=== PATIENT | female | born 1985 | race Caucasian/White ===

== ENCOUNTER 2017-07-23 17:58 | Emergency (ER) | payer MEDICAID, SELFPAY ==
[2017-07-23 17:59] VITALS: BP 135/87; PULSE 95; RESP 14; TEMP 36.9; O2SAT 99; BMI 24.4
--- NOTE | 2017-07-23 18:21 | ED.VISSUMM ---
- ER Visit Summary Date of Service: 07/23/17 Chief Complaint: Requesting detox from methamphetamine and opiates History of Present Illness: The patient is a 31 F has history of drug dependency. She states she uses periodically methamphetamine and opiates. She presently has no symptoms of withdrawal. She has gone through withdrawal in the past. She did do an outpatient assessment at 180. She denies fever, chills night sweats. Denies weight gain or weight loss. Eyes ocular, visual auditory symptoms denies chest pain or palpitations. Denies shortness of breath, cough or difficulty breathing. Denies dyspnea on exertion. She denies nausea, vomiting diarrhea. She denies myalgias arthralgias or back pain. She denies dysuria, frequency, urgency or hematuria. She denies bruising easily. She has no lesions on her extremities. Physical Examination: Blood pressure slightly elevated 135/84. She appears no distress. HEENT exam is unremarkable. Neck is supple. Heart is regular without murmur, gallop or rub. S1 and S2 are normal. Lungs are clear to auscultation with good movement of air bilaterally. Abdomen is soft nontender. Bowel sounds are present normal. There is no CVA tenderness noted. There is no track greco noted. There is no splinter hemorrhages, Osler nodes or Janeway lesions. Neuro exam is nonfocal. Test Results: None are indicated Emergency Department Course and Treatment: Contact [facility] in the morning and 180. Patient was informed since she is symptom-free she does not meet criteria for admission to the hospital Treatment Plan: Out patient follow-up and treatment Disposition: Discharged home in stable condition Impression: Drug dependency, methamphetamine and opiates This note was generated with [employer] dictation software. It may contain incorrect words, spelling, and punctuation that were not noted in review of the chart prior to signing ED Disposition - Plan for ED Patient: Disposition: Home or Assisted Living Chief Complaint: Subst Abuse Instructions: ED Drug Abuse General Referrals: Rashad Castrejon MD [Primary Care Provider] - As Needed EIGHTY,ONE [STAFF PHYSICIAN] - Additional Instructions: Contact [facility] tomorrow and 180 tomorrow. Presently you do not qualify for inpatient therapy.
--- NOTE | 2017-07-23 18:25 | ED.DCSUM_ITS ---
- ER Visit Summary Date of Service: 07/23/17 Chief Complaint: Requesting detox from methamphetamine and opiates History of Present Illness: The patient is a 31 F has history of drug dependency. She states she uses periodically methamphetamine and opiates. She presently has no symptoms of withdrawal. She has gone through withdrawal in the past. She did do an outpatient assessment at 180. She denies fever, chills night sweats. Denies weight gain or weight loss. Eyes ocular, visual auditory symptoms denies chest pain or palpitations. Denies shortness of breath , cough or difficulty breathing. Denies dyspnea on exertion. She denies nausea , vomiting diarrhea. She denies myalgias arthralgias or back pain. She denies dysuria, frequency, urgency or hematuria. She denies bruising easily. She has no lesions on her extremities. Physical Examination: Blood pressure slightly elevated 135/84. She appears no distress. HEENT exam is unremarkable. Neck is supple. Heart is regular without murmur, gallop or rub. S1 and S2 are normal. Lungs are clear to auscultation with good movement of air bilaterally. Abdomen is soft nontender. Bowel sounds are present normal. There is no CVA tenderness noted. There is no track greco noted. There is no splinter hemorrhages, Osler nodes or Janeway lesions. Neuro exam is nonfocal. Test Results: None are indicated Emergency Department Course and Treatment: Contact [facility] in the morning and 180. Patient was informed since she is symptom-free she does not meet criteria for admission to the hospital Treatment Plan: Out patient follow-up and treatment Disposition: Discharged home in stable condition Impression: Drug dependency, methamphetamine and opiates This note was generated with [employer] dictation software. It may contain incorrect words, spelling, and punctuation that were not noted in review of the chart prior to signing ED Disposition - Plan for ED Patient: Disposition: Home or Assisted Living Chief Complaint: Subst Abuse Instructions: ED Drug Abuse General Referrals: Rashad Castrejon MD [Primary Care Provider] - As Needed EIGHTY,ONE [STAFF PHYSICIAN] - Additional Instructions: Contact [facility] tomorrow and 180 tomorrow. Presently you do not qualify for inpatient therapy.
== END 2017-07-23 18:36 | disposition home or self-care (01) ==
PROVIDERS: Emergency Provider Emergency Medicine; Family Provider Family Medicine; PCP Family Medicine
DX: F15.20 Other stimulant dependence, uncomplicated (principal); F11.20 Opioid dependence, uncomplicated; Z72.0 Tobacco use
CPT/HCPCS: 99282

== ENCOUNTER 2018-08-20 22:31 | Emergency (ER) | payer SELFPAY ==
[2018-08-20 22:32] VITALS: BP 148/92; PULSE 104; RESP 15; TEMP 36.9; O2SAT 97; BMI 26.4
--- NOTE | 2018-08-20 23:17 | ED.VISSUMM ---
- ER Visit Summary Date of Service: 08/20/18 Chief Complaint: Heroin detox History of Present Illness: The patient is a 32 F who presents requesting detox from heroin. Patient currently uses opiates, mainly heroin but sometimes fentanyl, as well as methamphetamine. She last used heroin last night. She has been using meth today. She has been in detox before. She is hoping to be treated by [facility]. Patient currently complains of diarrhea with associated crampiness, chills, nausea and crampiness as well as tremulousness and nasal congestion. Physical Examination: Vital signs: afebrile, hemodynamically stable, no hypoxia on room air General: well nourished, well developed, in no distress Skin: warm, dry, no rash, no pallor, no diaphoresis, no piloerection HEENT: normocephalic and atraumatic; PERRL, EOMI, moist mucous membranes, multiple skin picking greco on the face Cardiovascular: Mildly tachycardic rate and rhythm, no peripheral edema Respiratory: No increased work of breathing MSK: Moves all extremities, no deformities, normal strength, tremulousness with hand extended Neuro: Awake and alert, oriented ?4. No facial droop, sensation and motor function intact and symmetric Test Results: [] Emergency Department Course and Treatment: Patient currently has a CINA score of 9. Patient's insurance did not qualify and that she would be self-pay. Patient plans to visit the insurance office tomorrow, as her insurance should have come through and covered her. She is also going to return tomorrow during hours that [facility] is in-house and try to get back in at that time. Patient was given Zofran for nausea in the emergency department. She was given a prescription for the same. She states she will not use when she leaves. She was also given some resources for other treatment programs in case she is unable to successfully get into [facility]. Patient was discharged home with her mother. Treatment Plan: [] Disposition: [] Impression: Opiate withdrawal, polysubstance abuse This note was generated with [employer] software. It may contain incorrect words, spelling, and punctuation that were not noted in review of the chart prior to signing ED Disposition - Plan for ED Patient: Disposition: Home or Assisted Living Instructions: Opiate Abuse, Narcotic Withdrawal Prescriptions: Ondansetron [Ondansetron Odt] 4 mg PO TID PRN PRN #10 tab.rapdis PRN Reason: Nausea Prescription Printed Referrals: Rashad Castrejon MD [Primary Care Provider] - As Needed [employer] [STAFF PHYSICIAN] - Additional Instructions: If you have any worsening of your condition or any new concerning symptoms, please return immediately to the emergency department for another evaluation.
[2018-08-21 00:20] VITALS: PULSE 97; RESP 20; O2SAT 98
--- NOTE | 2018-08-21 00:21 | ED.RN ---
THIS NURSE REVIEWED D/C INSTRUCTIONS WITH PT. PT VERBALIZED UNDERSTANDING OF INSTRUCTIONS. PT DENIES FURTHER NEEDS OR QUESTIONS AT THIS TIME. PT AMBULATES FROM ROOM ON OWN WITHOUT ASSISTANCE FROM STAFF
== END 2018-08-21 00:22 | disposition home or self-care (01) ==
PROVIDERS: Emergency Provider Emergency Medicine; Family Provider Family Medicine; PCP Family Medicine
DX: F11.23 Opioid dependence with withdrawal (principal); F19.10 Other psychoactive substance abuse, uncomplicated
CPT/HCPCS: 99282

== ENCOUNTER 2019-01-15 16:29 | Inpatient (IN) | payer MEDICAID, SELFPAY ==
[2019-01-15 16:31] VITALS: BP 147/93; PULSE 97; RESP 17; TEMP 37.1; O2SAT 100; BMI 26.6
--- NOTE | 2019-01-15 16:47 | CT_ITS ---
STUDY: CT ABDOMEN AND PELVIS WITHOUT CONTRAST REASON FOR EXAM: Female, 33 years old. RT FLANK PAIN X 4 DAYS,HEROIN USE TODAY,PREG TEST WAS NEGATIVE HX:KIDNEY STONES,APPENDECTOMY RADIATION DOSAGE (If Supplied By Facility): CTDIvol = ( 7.13 ) mGy, DLP = ( 352.62 ) mGycm TECHNIQUE: Transaxial images were obtained from the dome of the diaphragm to the symphysis pubis without oral contrast, and without intravenous contrast. Sagittal and coronal images were reconstructed. Individualized dose optimization techniques were used for this CT. COMPARISON: None. FINDINGS: The visualized lung bases are unremarkable. A tiny calcified nodule is present in the posterior capsule of the left lobe of the liver. The liver is otherwise grossly unremarkable. No intrahepatic biliary duct dilatation or liver mass. Normal gallbladder and extrahepatic biliary system. Normal spleen. Normal pancreas. Normal bilateral adrenal glands. Normal right kidney. Normal left kidney. No hydronephrosis or renal masses. No large stones. Normal visualized stomach. Normal small intestine. Normal colon. No bowel dilatation or obstruction. No free air or free fluid. There is non-visualization of the appendix. Normal abdominal aorta. Normal inferior vena cava. Normal retroperitoneum. Normal urinary bladder. Grossly unremarkable uterus and adnexal regions. Normal abdominal wall. Normal osseous structures. CT/Abdomen/Pelvis without Cont IMPRESSION: No demonstrated acute or significant process of the abdomen and pelvis. Electronically Signed: Salvador Darnell MD at 18:48 EST , Service support ,
[2019-01-15 17:19] LABS: Bacteria 0 SEEN /hpf (None Seen); Mucous, Urine 0 SEEN /hpf (<or=2+)
[2019-01-15 17:28] LABS: Absolute Lymphocyte Count 1.84 X10^3/uL (0.83-4.51); Absolute Neutrophil Count 2.8 X10^3/uL (2.0-7.7); Basophil# 0.03 X10^3/uL; Basophil% 0.6 % (0-1); Eosinophil# 0.14 X10^3/uL; Eosinophils% 2.6 % (0-5); Hematocrit 40.1 % (37-47); Lymphocyte # 1.84 X10^3/ul (4.0); Lymphocyte % 33.9 % (19-41); Mean Corp Hgb Conc 32.4 g/dL (32-36); Mean Corpuscular Hgb 28.8 pg (27.0-32.0); Mean Corpuscular Volume 88.7 fL (81-99); Mean Platelet Vol. 8.8 fl (6.2-12.0); Monocyte# 0.58 X10^3/uL; Monocyte% 10.7 % (0-10); NRBC Flagged by Analyzer 0 % (0-5); Neutrophil # 2.82 X10^3/uL (2.7-7.7); Neutrophil % 51.8 % (47-70); POSITIVE MORPHOLOGY YES; Platelet Count 289 K/mm3 (150-450); RBC Distribution Width CV 14.1 % (11.6-14.6); RBC Distribution Width SD 45.6 fl (35.1-43.9); Red Blood Count 4.52 M/mm3 (4.2-5.4); White Blood Count 5.4 K/mm3 (4.4-11.0)
[2019-01-15 17:31] LABS: Color, Urine Yellow (Yellow); Glucose, Dipstick Normal (Normal); Ketone-Dipstick Negative (Negative); Leukocyte Esterase-Dipstick Negative /ul (Negative); Nitrite-Dipstick Negative (Negative); Occult Blood-Urine Negative /ul (Negative); Protein-Dipstick Negative (Negative); Urine Bilirubin Dipstick Negative (Negative); Urine Clarity Clear (Clear); Urine Urobilinogen Normal (Normal)
[2019-01-15] MEDS: Ketorolac 30 MG/ML Syringe IV (17:32)
[2019-01-15 17:36] LABS: Differential Indicated SCAN CRITERIA MET
[2019-01-15 17:37] LABS: Anion Gap 5 (5-15); BUN 7 mg/dL (7-18); BUN/Creat Ratio 10.6 RATIO (10-20); Calcium,Total 9.2 mg/dL (8.5-10.1); Chloride 107 mmol/L (98-107); Creatinine, Serum 0.66 mg/dL (0.55-1.02); EST Glomerular Filtration Rate 108 mL/min (>60); Est Glom Filt Rate - Afr Amer 131 mL/min (>60); Estimated Creatinine Clearance 99.35 ml/min; Glucose 89 mg/dL (74-106); Sodium Level 139 mmol/L (136-145)
[2019-01-15 17:38] LABS: Amphetamine Urine VISTA POSITIVE (<1000 ng/mL); Barbiturate Urine VISTA NEGATIVE (< 200 ng/mL); Benzodiazepine Urine VISTA NEGATIVE (< 200 ng/mL); Cocaine Urine VISTA NEGATIVE (< 300 ng/mL); Ecstacy Urine VISTA NEGATIVE (< 500 ng/mL); Methadone Urine VISTA NEGATIVE (< 300 ng/mL); PCP Urine VISTA NEGATIVE (< 25 ng/mL); THC Urine VISTA NEGATIVE (< 50 ng/mL); Vista UDS pH Range 7
[2019-01-15 17:53] LABS: Internal QC Validated? YES +Cl - CLEAR BKGD; Pregnancy, Serum, hCG Quali. NEGATIVE Negative
[2019-01-15 17:54] LABS: Differential Comment SCANNED; Red Blood Cells-Urine 0-5 SEEN /hpf (0-5); Squamous Epithelial Cells - UA 0-5 SEEN /hpf (5-10); White Blood Cells 0-5 SEEN /hpf (0-5)
[2019-01-15 18:13] LABS: Alcohol, Blood (Medical)-Serum < 3.0 mg/dL
--- NOTE | 2019-01-15 19:07 | ED.DCSUM_ITS ---
- ER Visit Summary Date of Service: 01/15/19 Chief Complaint: [Request for detox from heroin and fentanyl as well as right flank pain] History of Present Illness: The patient is a 33 F [the emergency department with request to go through detox for opiates. Patient states that she last used fentanyl about 2 AM. Patient also has been having right flank pain for the last 3 or 4 days. She denies any dysuria. She denies frequency or urgency. Patient denies hematuria. Denies any fevers. She has history of peptic ulcer disease. Patient had prior appendectomy and C-sections x3.] Physical Examination: [HEENT-PERRLA, EOMI. Cranial nerves II through XII grossly intact. TMs clear. Mucous membranes moist. No adenopathy. Cardiovascular-regular rate and rhythm without murmur or ectopy Lungs-clear to auscultation, chest wall stable without crepitus or subcu emphysema Abdomen-normoactive bowel sounds, soft. Patient has some tenderness over the right lower quadrant with some guarding. Patient has CVA tenderness on the right. There is no rebound, rigidity, or perineal signs. Extremities-intact ?4, normal range of motion, normal pulses, atraumatic] Test Results: [CBC with differential obtained showed a white count of 5.4, hemoglobin 13, hematocrit 40, placed 289. Chemistries were normal. Urinalysis normal. hCG was negative. Toxicology screen was positive for amphetamines and alcohol was negative. CT scan of the abdomen pelvis showed nothing acute.] Emergency Department Course and Treatment: [Had an IV line established and she was ordered Toradol 30 mg IV.] Treatment Plan: [Admit for detox from heroin and fentanyl.] Disposition: [Admit] Impression: [Detox from heroin and fentanyl Right flank pain-etiology uncertain] This note was generated with [employer] software. It may contain incorrect words, spelling, and punctuation that were not noted in review of the chart prior to signing ED Disposition - Plan for ED Patient: Referrals: Rashad Castrejon MD [Primary Care Provider] -
--- NOTE | 2019-01-15 19:19 | PCM.HP.STD ---
Problem List (1) Opiate withdrawal Status: Acute (2) IVDA (intravenous drug abuse) complicating Status: Chronic (3) Anxiety and depression Status: Chronic (4) Tobacco use Status: Chronic History of Present Illness Date of Admission: 01/15/19 Chief Complaint: Acute opiate withdrawal The patient is a 33 y/o F w/ PMHx: Tobacco use, Anxiety and Depression, Polysubstance Abuse, IVDA, currently using IV heroin and fentanyl (rotates, $60 per day usage) as well as occasional methamphetamines who presents to the [facility] ED on 01/15/19 w/ noted opiate withdrawal onset starting 01/15/19 evening following last dose of IV fentanyl at ~ 2 am on day of presentation with abdominal pain/cramping, generalized body aches and pains, rhinorrhea, piloerection, fatigue, restless leg, sweating, yawning. Patient interested in attaining clean status. She notes having been previously treated in the acute rehab setting x 2. She notes she had previously been clean x 2 years. Work-up in the ED included T 98.8, heart rate 97, BP 147/93, respiratory rate 17, 100% room air, CBC unremarkable, BMP unremarkable, negative testing, urinalysis unremarkable, urine drug screen with positive amphetamines, negative alcohol, CT abdomen and pelvis with no acute intra-abdominal process. In the ED patient was administered normal saline and Toradol. Past Medical History Past Medical History (Chronic Problems): Chronic Problems IVDA (intravenous drug abuse) complicating (Chronic) Anxiety and depression (Chronic) Tobacco use (Chronic) Allergies latex Allergy (Verified 01/15/19 16:30) Rash Home Medications: Ambulatory Orders Medication Instructions Recorded NK 01/15/19 Surgical History: - - Tonsillectomy, appendectomy, x3, history of gastric and duodenal perforation, bowel obstruction with required resection. Psychiatric History: Anxiety, Depression MANAGER METAL History: No pertinent MANAGER METAL history Lives: With Family - Patient lives with her mother and her children. Smoking Status: Current every day smoker - Patient smokes approximately 1/2 pack/day cigarette tobacco usage. Tobacco Use: Cigarettes Alcohol: None Drugs: - - Patient mitts to heroin, fentanyl and methamphetamine usage, IV. - *Family History Maternal History Items: Diabetes Paternal History Items: Diabetes Review of Systems Constitutional: Reports: Anorexia, Malaise, Weakness, Fatigue. Denies: Chills, Fever, Weight Change HEENT: Reports: Nasal Congestion, Post Nasal Drip, Sinus Congestion. Denies: Head Aches, Sinus Drainage Cardiovascular: Denies: Chest Pain, Palpitations Respiratory: Denies: Cough, Shortness of Breath, Shortness of breath at rest, Shortness of breath upon exertion, Sputum production Gastrointestinal: Reports: Abdominal Pain, Diarrhea, Nausea, Vomiting Genitourinary: Denies: Dysuria Musculoskeletal: Reports: Joint Pain, Muscle pain. Denies: Joint Tenderness Skin: Reports: Skin Changes. Denies: Rash, Wounds Neurological: Denies: Numbness, Tingling, Focal weakness Psychiatric: Reports: Anxiety, Depression. Denies: Homicidal Ideations, Suicidal Ideations Hematologic/ Lymphatic: Denies: Easy Bruising, Easy Bleeding VTE Information - Inpt Only VTE Present on Admission: No VTE Mechan Device Prophylaxis: None VTE Pharm Prophylaxis ordered?: No Reason prophylaxis not ordered:: Treatment Not Indicated Patient Problems: Active and Suspected Problems Opiate withdrawal (Acute) Subjective: Seated upright in the ED bed, fatigued appearance, mildly anxious, moving frequently. Objective: Physical Examination: General: awake, alert, oriented x 3 and cooperative, seated upright in the ED bed, mildly uncomfortable appearing. Skin: normal color, turgor, no icterus, cyanosis except notable pink regions to face. HEENT: AT/NC, EOMI, PERRLA, dry MM, rhinorrhea present, no carotid bruits or JVD noted. Lungs: CTA bilaterally, moderate effort, moderate decrease BL bases, no rales, ronchi or wheezing. Heart: Mildly tachycardic with regular rhythm; no gallop, rub audible. Abdomen: soft, mild generalized discomfort with palpation, ND, normal BS, no HSM. Extremities: no cyanosis, clubbing, or edema. Neurological: patient awake, alert, oriented x 3; cognitive function intact; pupils equally reactive to light and accomodation; cranial nerves II-XII grossly normal, moving all 4 extremities, no focal deficits, strength moderately global decrease secondary to acute presentation as noted. Psychiatric: affect appears mildly anxious, mildly agitated, no acute evidence of depressive feelings. - Physical Exam Vitals/I&O's: Vital Signs Temp Pulse Resp BP Pulse Ox 98.8 F 97 17 147/93 H 100 11/20/19 16:31 01/15/19 16:31 01/15/19 16:31 01/15/19 16:31 01/15/19 16:31 Oxygen Delivery Method Room Air Weight: 150 lb 12.739 oz Body Mass Index (BMI) 26.6 Laboratory Results 01/15/19 17:05: WBC 5.4, RBC 4.52, Hgb 13.0, Hct 40.1, MCV 88.7, MCH 28.8, MCHC 32.4, RDW Std Deviation 45.6 H, RDW Coeff of Mikki 14.1, Plt Count 289, MPV 8.8, Immature Gran % (Auto) 0.400, Neut % (Auto) 51.8, Lymph % (Auto) 33.9, [place] % (Auto) 10.7 H, Eos % (Auto) 2.6, Baso % (Auto) 0.6, Absolute Neuts (auto) 2.8, Absolute Lymphs (auto) 1.84, Nucleated RBC % 0, Differential Comment SCANNED 01/15/19 17:05: Sodium 139, Potassium 4.0, Chloride 107, Carbon Dioxide 27.0, Anion Gap 5, BUN 7, Creatinine 0.66, Estim Creat Clear Calc 99.35, Est GFR (MDRD) Af Amer 131, Est GFR (MDRD) Non-Af 108, BUN/Creatinine Ratio 10.6, Glucose 89, Calcium 9.2 01/15/19 17:05: Ethyl Alcohol < 3.0 01/15/19 17:05: Serum , Qual NEGATIVE 01/15/19 17:05: Urine Color Yellow, Urine Clarity Clear, Urine pH 7.0, Ur Specific [place] 1.010, Urine Protein Negative, Urine Glucose (UA) Normal, Urine Ketones Negative, Urine Occult Blood Negative, Urine Nitrite Negative, Urine Bilirubin Negative, Urine Urobilinogen Normal, Ur Leukocyte Esterase Negative, Urine RBC 0-5 SEEN, Urine WBC 0-5 SEEN, Ur Squamous Epith Cells 0-5 SEEN, Urine Bacteria 0 SEEN, Urine Mucus 0 SEEN 01/15/19 17:05: Urine Opiates Screen NEGATIVE, Urine Methadone Screen NEGATIVE, Ur Barbiturates Screen NEGATIVE, Ur Phencyclidine Scrn NEGATIVE, Ur Amphetamines Screen POSITIVE H, U Methamphetamin-MDMA NEGATIVE, U Benzodiazepines Scrn NEGATIVE, Urine Cocaine Screen NEGATIVE, U Cannabinoids Screen NEGATIVE, Ur Drug Screen Comment Current Medications Sodium Chloride () 1,000 mls @ 150 mls/hr IV .[id number] [facility] Assessment/Plan All Active Problems Opiate withdrawal (Acute) The patient is a 33 y/o F w/ PMHx: Tobacco use, Anxiety and Depression, Polysubstance Abuse, IVDA, currently using IV heroin and fentanyl (rotates, $60 per day usage) as well as occasional methamphetamines who presents to the [facility] ED on 01/15/19 w/ noted opiate withdrawal onset starting 01/15/19 evening following last dose of IV fentanyl at ~ 2 am on day of presentation. (1) Acute Opiate Withdrawal: Will admit to [facility], will initiate and continue on tapering course of Subutex, as needed Seroquel, Librium, Sinemet, Catapres, Bentyl, Vistaril, IV fluids, IV antiemetics, Tylenol as needed for pain. Will consult case management to assist with transition of care following completion of taper for transition to next level of rehabilitation care. (2) Polysubstance Abuse, IVDA: We will obtain hepatitis and HIV panel. Discussed that given patient status currently if hepatitis C positive would need to be clean and sober x6 months with documented attendance of NA or AA meetings but then would be an appropriate candidate for treatment if applicable. Encouraged PCP establishment and follow-up. (3) Tobacco Abuse: Encouraged cessation, inpatient consultation per RT, NR if desired. (4) Anxiety and depression: Encourage outpatient follow-up, consideration of SNRI versus SSRI initiation to assist with avoidance of #1. (5) DVT prophylaxis: Low risk. Code Visit Inpatient E&M: 57061 Init Hosp L3
[2019-01-15] MEDS: 0.9% Normal Saline 1,000 ML 150 ML IV (19:27)
[2019-01-15 20:13] VITALS: BMI 27.5
[2019-01-15 20:14] VITALS: BP 132/87; PULSE 69; RESP 16; TEMP 36.7; O2SAT 97
[2019-01-15 20:17] VITALS: BMI 27.5
[2019-01-15] MEDS: Buprenorphine HCl 2 MG TAB.SUBL SL (20:47)
[2019-01-15] MEDS: Pramipexole Di-HCl 0.25 MG Tablet PO (20:48)
[2019-01-15] MEDS: traZODone 50 MG Tablet PO (20:48)
[2019-01-15] MEDS: Lactated Ringers 1,000 ML 125 ML IV (20:52)
[2019-01-15 21:21] LABS: HIV - WCH Non-Reactive (Nonreactive)
[2019-01-15] MEDS: hydrOXYzine PAM 25 MG Capsule 50 MG PO (22:44)
[2019-01-15] MEDS: cloNIDine HCl 0.1 MG Tablet PO (22:44)
[2019-01-15] MEDS: Methocarbamol 750 MG Tablet PO (23:46)
[2019-01-15] MEDS: Ibuprofen 600 MG Tablet PO (23:46)
[2019-01-15] MEDS: QUEtiapine 25 MG Tablet PO (23:46)
[2019-01-16 02:00] VITALS: BP 138/100; PULSE 86; RESP 20; TEMP 36.8; O2SAT 96
[2019-01-16] MEDS: Buprenorphine HCl 2 MG TAB.SUBL SL ×3 (04:09→20:32)
[2019-01-16 08:35] VITALS: BP 117/68; PULSE 68; RESP 18; TEMP 36.3; O2SAT 97
--- NOTE | 2019-01-16 08:47 | PCM.PN.HOSP ---
Patient Problems: Active and Suspected Problems Opiate withdrawal (Acute) Subjective: Follow-up on acute opiate withdrawal: Patient was seen and examined. No acute events overnight. Complains of hot flashes, restlessness and inability to sleep. Vitals/I&O's: Vital Signs Temp Pulse Resp BP Pulse Ox 97.3 F L 68 18 117/68 97 01/16/19 08:35 01/16/19 08:35 01/16/19 08:35 01/16/19 08:35 01/16/19 08:35 Oxygen Delivery Method Room Air Weight: 70.398 kg Body Mass Index (BMI) 27.5 Intake and Output for Last 24 Hours 01/14/19 01/15/19 01/16/19 23:59 23:59 23:59 Intake Total 242.5 / 842.5 1556.25 / 1556.25 Balance 242.5 / 842.5 1556.25 / 1556.25 General: Alert, Oriented x3, Cooperative, No apparent distress HEENT: Atraumatic, PERRLA, EOMI, Normocephalic Oral: Moist Mucosa Neck: Supple Lungs: Clear to auscultation, Normal air movement Cardiovascular: Regular rate, Regular Rhythm, Normal S1, Normal S2, No murmurs Abdomen: Bowel Sounds Present, Soft, Non Tender, Non-Distended, No Hepato-splenomegaly Extremities: No edema Skin: - - multiple pimples on face Musculoskeletal: No Tenderness to Palpation of Joints or Extremities Lymphatic: No Cervical, Supraclavicular, or Inguinal Adenopathy Neurological: Cranial nerves II-XII grossly intact, Neuro grossly intact Psych/Mental Status: Normal Affect, Appropriate Laboratory Results 01/15/19 17:05: WBC 5.4, RBC 4.52, Hgb 13.0, Hct 40.1, MCV 88.7, MCH 28.8, MCHC 32.4, RDW Std Deviation 45.6 H, RDW Coeff of Mikki 14.1, Plt Count 289, MPV 8.8, Immature Gran % (Auto) 0.400, Neut % (Auto) 51.8, Lymph % (Auto) 33.9, [place] % (Auto) 10.7 H, Eos % (Auto) 2.6, Baso % (Auto) 0.6, Absolute Neuts (auto) 2.8, Absolute Lymphs (auto) 1.84, Nucleated RBC % 0, Differential Comment SCANNED 01/15/19 17:05: Sodium 139, Potassium 4.0, Chloride 107, Carbon Dioxide 27.0, Anion Gap 5, BUN 7, Creatinine 0.66, Estim Creat Clear Calc 99.35, Est GFR (MDRD) Af Amer 131, Est GFR (MDRD) Non-Af 108, BUN/Creatinine Ratio 10.6, Glucose 89, Calcium 9.2 01/15/19 17:05: Ethyl Alcohol < 3.0 01/15/19 17:05: Serum , Qual NEGATIVE 01/15/19 17:05: Urine Color Yellow, Urine Clarity Clear, Urine pH 7.0, Ur Specific Vaughn 1.010, Urine Protein Negative, Urine Glucose (UA) Normal, Urine Ketones Negative, Urine Occult Blood Negative, Urine Nitrite Negative, Urine Bilirubin Negative, Urine Urobilinogen Normal, Ur Leukocyte Esterase Negative, Urine RBC 0-5 SEEN, Urine WBC 0-5 SEEN, Ur Squamous Epith Cells 0-5 SEEN, Urine Bacteria 0 SEEN, Urine Mucus 0 SEEN 01/15/19 17:05: Urine Opiates Screen NEGATIVE, Urine Methadone Screen NEGATIVE, Ur Barbiturates Screen NEGATIVE, Ur Phencyclidine Scrn NEGATIVE, Ur Amphetamines Screen POSITIVE H, U Methamphetamin-MDMA NEGATIVE, U Benzodiazepines Scrn NEGATIVE, Urine Cocaine Screen NEGATIVE, U Cannabinoids Screen NEGATIVE, Ur Drug Screen Comment 01/15/19 17:05: Hepatitis A IgM Ab Pending, Hepatitis A Ab Total Pending, Hep Bs Antigen Pending, Hep B Core Total Ab Pending, Hep B Core IgM Ab Pending 01/15/19 17:05: HIV 1&2 Antibody Non-Reactive Current Medications Acetaminophen (Tylenol) 500 mg PO Q4H PRN PRN PRN Reason: Temp > 100.4 F Al Hydroxide/Mg Hydroxide (Mylanta Ii) 30 ml PO Q6H PRN PRN PRN Reason: dyspesia Albuterol Sulfate (Ventolin Aerosols) 2.5 mg INHALATION Q2H PRN PRN PRN Reason: dyspnea, wheezing Bisacodyl (Dulcolax) 10 mg RECTAL DAILY PRN PRN Reason: Constipation Buprenorphine HCl (Buprenorphine Hcl) 4 mg SL Q8H JESSICA; Taper Stop: 01/19/19 00:29 Last Admin: 01/16/19 04:09 Dose: 4 mg Documented by: Chlordiazepoxide (Librium) 25 mg PO Q6H PRN PRN PRN Reason: Moderate-Severe Anxiety Clonidine (Catapres) 0.1 mg PO Q2H PRN PRN PRN Reason: Hot/Cold Sweats or Anxiety Last Admin: 01/15/19 22:44 Dose: 0.1 mg Documented by: Dextrose (D50w Syringe) 0 gm IV X1 PRN; Protocol PRN Reason: Hypoglycemia Dicyclomine HCl (Bentyl) 20 mg PO Q6H PRN PRN PRN Reason: Abdomnial Discomfort Glucagon () 1 mg IM .X1 PRN PRN Reason: Hypoglycemia Hydralazine HCl (Apresoline Iv) 10 mg IV Q4H PRN PRN PRN Reason: SBP > 160 Hydroxyzine HCl (Vistaril Vial) 50 mg IM Q6H PRN PRN PRN Reason: Breakthrough Anxiety Hydroxyzine Pamoate (Vistaril Pamoate Capsule) 50 mg PO Q6H PRN PRN PRN Reason: Mild Anxiety Last Admin: 01/15/19 22:44 Dose: 50 mg Documented by: Ibuprofen (Motrin) 600 mg PO Q8H PRN PRN PRN Reason: Pain Score 1-5/10 Last Admin: 01/15/19 23:46 Dose: 600 mg Documented by: Loperamide HCl (Imodium) 2 - 4 mg PO UD PRN PRN Reason: LOOSE STOOLS Methocarbamol (Methocarbamol) 750 mg PO Q6H PRN PRN PRN Reason: Muscle Aches Last Admin: 01/15/19 23:46 Dose: 750 mg Documented by: Nicotine (Nicoderm Cq (Pbkc)) 14 mg TRANSDERM. DAILY JESSICA Last Admin: 01/16/19 08:43 Dose: Not Given Documented by: Ondansetron HCl (Zofran) 4 mg IV Q8H PRN PRN PRN Reason: NAUSEA/VOMITING Ondansetron HCl (Zofran Odt) 4 mg PO Q6H PRN PRN PRN Reason: NAUSEA Pramipexole Dihydrochloride (Mirapex) 0.25 mg PO Q12H PRN PRN PRN Reason: Restless Legs Last Admin: 01/15/19 20:48 Dose: 0.25 mg Documented by: Quetiapine Fumarate (Seroquel) 25 mg PO Q6H PRN PRN PRN Reason: severe agitation, anxiety Last Admin: 01/15/19 23:46 Dose: 25 mg Documented by: Senna (Senokot) 1 tablet PO QHS PRN PRN Reason: Constipation Sodium Chloride () 10 - 40 ml IV UD PRN PRN Reason: SALINE FLUSH Trazodone HCl (Desyrel) 50 mg PO QHS JESSICA Last Admin: 01/15/19 20:48 Dose: 50 mg Documented by: STROKE Vital Signs/Narrative: Vital Signs Temp Pulse Resp BP Pulse Ox 01/16/19 08:35 97.3 F L 68 18 117/68 97 Medical Necessity - Tobacco Use Smoking Status: Current every day smoker Tobacco Use: Cigarettes Assessment/Plan All Active Problems Opiate withdrawal (Acute) 1. Acute opiate withdrawal, improving, last CINA score is 4 Continue on the buprenorphine withdrawal protocol 2. Polysubstance use disorder, advised to quit 3. Anxiety/depression, not on home medications 4. Nicotine dependence, on nicotine replacement 5. DVT PPx- early ambulation Code Visit Inpatient E&M: 47863 Subs Hosp L2
[2019-01-16] MEDS: cloNIDine HCl 0.1 MG Tablet PO ×2 (12:35→14:54)
--- NOTE | 2019-01-16 12:36 | CASEMGMT ---
SW attempted to meet w/pt, pt states is not feeling well and does not want to meet now. SW explained can return tomorrow, pt agreeable to this. SW gave pt a brochure for [facility] with the 24 hour navigator number, SW encouraged pt to call the number to explore discharge options. Pt states understanding. SW will follow up w/pt tomorrow. PARK Ledbetter
[2019-01-16 14:45] VITALS: BP 115/74; PULSE 79; RESP 18; TEMP 36.9; O2SAT 98
[2019-01-16] MEDS: Dicyclomine 10 MG Capsule 20 MG PO (14:53)
[2019-01-16] MEDS: Pramipexole Di-HCl 0.25 MG Tablet PO (14:54)
[2019-01-16] MEDS: chlordiazePOXIDE 25 MG Capsule PO (14:54)
[2019-01-16] MEDS: Methocarbamol 750 MG Tablet PO (14:54)
[2019-01-16 20:28] VITALS: BP 95/59; PULSE 66; RESP 18; TEMP 37.1; O2SAT 99
[2019-01-16] MEDS: traZODone 50 MG Tablet PO (20:32)
[2019-01-17] MEDS: Buprenorphine HCl 2 MG TAB.SUBL SL ×2 (03:37→11:33)
[2019-01-17 03:40] VITALS: BP 105/64; PULSE 58; RESP 14; TEMP 36.8; O2SAT 97
[2019-01-17] MEDS: Methocarbamol 750 MG Tablet PO ×3 (03:47→17:51)
[2019-01-17] MEDS: Dicyclomine 10 MG Capsule 20 MG PO ×3 (03:47→17:51)
[2019-01-17] MEDS: Pramipexole Di-HCl 0.25 MG Tablet PO (03:47)
[2019-01-17 08:11] LABS: HEPATITIS B SURFACE AG Negative (Negative); Hepatitis A AB, Total Positive (Negative); Hepatitis A IgM Antibody Positive (Negative); Hepatitis B Core AB IgM Negative (Negative); Hepatitis B Core Ab Total Negative (Negative)
--- NOTE | 2019-01-17 09:29 | CASEMGMT ---
SW met w/pt in room briefly. Pt is still not feeling well today, and is not up for a long conversation. She has been working with [facility] and is planning to call them herself at discharge, plans to go through their 30 day program at [facility]. She states she will call when discharged from here. If that does not work out, she plans to follow up with [facility]. SW inquired w/pt if she needs SW to follow up on anything for her, pt states she does not, will let RN know if she does. No further needs at this time. Plan: Pt to follow up w/[facility] for a 30 day in program, and if they do not have availability she will follow up w/[facility]. PARK Ledbetter
[2019-01-17 09:51] LABS: Hep B Surface Antibodies Reactive (.)
[2019-01-17 09:52] LABS: Hepatitis C Ab >11.0 s/co ratio (0.0-0.9)
--- NOTE | 2019-01-17 10:56 | PN_ITS ---
Patient Problems: Active and Suspected Problems Opiate withdrawal (Acute) Subjective: Follow-up on opiate withdrawal: Patient was seen and examined. Complains of feeling restless and having hot flashes. No nausea or vomiting or diarrhea. ROS is negative. Objective: Physical exam: General: Alert, Oriented x3, Cooperative, No apparent distress HEENT: Atraumatic, PERRLA, EOMI, Normocephalic Oral: Moist Mucosa Neck: Supple Lungs: Clear to auscultation, Normal air movement Cardiovascular: Regular rate, Regular Rhythm, Normal S1, Normal S2, No murmurs Abdomen: Bowel Sounds Present, Soft, Non Tender, Non-Distended, No Hepato- splenomegaly Extremities: No edema Skin: - - multiple pimples on face Musculoskeletal: No Tenderness to Palpation of Joints or Extremities Lymphatic: No Cervical, Supraclavicular, or Inguinal Adenopathy Neurological: Cranial nerves II-XII grossly intact, Neuro grossly intact Psych/Mental Status: Normal Affect, Appropriate Vitals/I&O's: Vital Signs Temp Pulse Resp BP Pulse Ox 98.2 F 58 L 14 105/64 97 01/17/19 03:40 01/17/19 03:40 01/17/19 03:40 01/17/19 03:40 01/17/19 03:40 Oxygen Delivery Method Room Air Weight: 70.398 kg Body Mass Index (BMI) 27.5 Intake and Output for Last 24 Hours 01/15/19 01/16/19 01/17/19 23:59 23:59 23:59 Intake Total 242.5 / 842.5 2276.25 / 2276.25 Balance 242.5 / 842.5 2276.25 / 2276.25 Laboratory Results 01/15/19 17:05: Hepatitis A IgM Ab Positive H, Hepatitis A Ab Total Positive H, Hep Bs Antigen Negative, Hep B Core Total Ab Negative, Hep B Core IgM Ab Negative, Hepatitis C Ab Confirm >11.0 H Current Medications Acetaminophen (Tylenol) 500 mg PO Q4H PRN PRN PRN Reason: Temp > 100.4 F Al Hydroxide/Mg Hydroxide (Mylanta Ii) 30 ml PO Q6H PRN PRN PRN Reason: dyspesia Albuterol Sulfate (Ventolin Aerosols) 2.5 mg INHALATION Q2H PRN PRN PRN Reason: dyspnea, wheezing Bisacodyl (Dulcolax) 10 mg RECTAL DAILY PRN PRN Reason: Constipation Buprenorphine HCl (Buprenorphine Hcl) 2 mg SL Q8H JESSICA; Taper Stop: 01/19/19 00:29 Last Admin: 01/17/19 03:37 Dose: 2 mg Documented by: Chlordiazepoxide (Librium) 25 mg PO Q6H PRN PRN PRN Reason: Moderate-Severe Anxiety Last Admin: 01/16/19 14:54 Dose: 25 mg Documented by: Clonidine (Catapres) 0.1 mg PO Q2H PRN PRN PRN Reason: Hot/Cold Sweats or Anxiety Last Admin: 01/16/19 14:54 Dose: 0.1 mg Documented by: Dextrose (D50w Syringe) 0 gm IV X1 PRN; Protocol PRN Reason: Hypoglycemia Dicyclomine HCl (Bentyl) 20 mg PO Q6H PRN PRN PRN Reason: Abdomnial Discomfort Last Admin: 01/17/19 03:47 Dose: 20 mg Documented by: Glucagon () 1 mg IM .X1 PRN PRN Reason: Hypoglycemia Hydralazine HCl (Apresoline Iv) 10 mg IV Q4H PRN PRN PRN Reason: SBP > 160 Hydroxyzine HCl (Vistaril Vial) 50 mg IM Q6H PRN PRN PRN Reason: Breakthrough Anxiety Hydroxyzine Pamoate (Vistaril Pamoate Capsule) 50 mg PO Q6H PRN PRN PRN Reason: Mild Anxiety Last Admin: 01/15/19 22:44 Dose: 50 mg Documented by: Ibuprofen (Motrin) 600 mg PO Q8H PRN PRN PRN Reason: Pain Score 1-5/10 Last Admin: 01/15/19 23:46 Dose: 600 mg Documented by: Loperamide HCl (Imodium) 2 - 4 mg PO UD PRN PRN Reason: LOOSE STOOLS Methocarbamol (Methocarbamol) 750 mg PO Q6H PRN PRN PRN Reason: Muscle Aches Last Admin: 01/17/19 03:47 Dose: 750 mg Documented by: Nicotine (Nicoderm Cq (Pbkc)) 14 mg TRANSDERM. DAILY JESSICA Last Admin: 01/16/19 08:43 Dose: Not Given Documented by: Ondansetron HCl (Zofran) 4 mg IV Q8H PRN PRN PRN Reason: NAUSEA/VOMITING Ondansetron HCl (Zofran Odt) 4 mg PO Q6H PRN PRN PRN Reason: NAUSEA Pramipexole Dihydrochloride (Mirapex) 0.25 mg PO Q12H PRN PRN PRN Reason: Restless Legs Last Admin: 01/17/19 03:47 Dose: 0.25 mg Documented by: Quetiapine Fumarate (Seroquel) 25 mg PO Q6H PRN PRN PRN Reason: severe agitation, anxiety Last Admin: 01/15/19 23:46 Dose: 25 mg Documented by: Senna (Senokot) 1 tablet PO QHS PRN PRN Reason: Constipation Sodium Chloride () 10 - 40 ml IV UD PRN PRN Reason: SALINE FLUSH Trazodone HCl (Desyrel) 50 mg PO QHS [facility] Last Admin: 01/16/19 20:32 Dose: 50 mg Documented by: Medical Necessity - Tobacco Use Smoking Status: Current every day smoker Tobacco Use: Cigarettes Assessment/Plan All Active Problems Opiate withdrawal (Acute) 1. Acute opiate withdrawal, improving Continue on the buprenorphine withdrawal protocol 2. Polysubstance use disorder, advised to quit 3. Anxiety/depression, not on home medications 4. Nicotine dependence, on nicotine replacement 5. DVT PPx- early ambulation Code Visit Inpatient E&M: 25006 Subs Hosp L2
[2019-01-17 11:05] VITALS: O2SAT 98
[2019-01-17] MEDS: Ondansetron ODT 4 MG Tablet PO (11:22)
[2019-01-17] MEDS: chlordiazePOXIDE 25 MG Capsule PO ×2 (11:22→17:52)
[2019-01-17] MEDS: cloNIDine HCl 0.1 MG Tablet PO ×2 (11:22→17:50)
[2019-01-17 11:27] VITALS: BP 111/63; PULSE 54; RESP 16; TEMP 36.7; O2SAT 98
[2019-01-17 17:30] VITALS: BP 140/101; PULSE 58; RESP 16; TEMP 36.6; O2SAT 95
[2019-01-17] MEDS: QUEtiapine 25 MG Tablet PO (17:51)
[2019-01-17] MEDS: traZODone 50 MG Tablet PO (22:35)
[2019-01-17 22:40] VITALS: BP 90/50; PULSE 69; RESP 16; TEMP 36.8; O2SAT 99
[2019-01-18] MEDS: Buprenorphine HCl 2 MG TAB.SUBL SL ×2 (00:19→11:42)
[2019-01-18 00:22] VITALS: BP 99/45; PULSE 103; RESP 16; TEMP 37; O2SAT 98
[2019-01-18 07:04] VITALS: BP 86/58; PULSE 66; RESP 16; TEMP 36.9; O2SAT 98
[2019-01-18 07:40] VITALS: O2SAT 96
--- NOTE | 2019-01-18 10:02 | NURSING ---
pt has asked not to be disturbed, door is closed
--- NOTE | 2019-01-18 10:40 | NURSING ---
pt sleeping soundly with sheet pulled over her head, resp 14 will allow pt to sleep until her next dose of bup. or until she awakens and has needs call light in reach
[2019-01-18] MEDS: chlordiazePOXIDE 25 MG Capsule PO (11:48)
[2019-01-18] MEDS: Methocarbamol 750 MG Tablet PO (11:48)
[2019-01-18 11:55] VITALS: BP 91/64; PULSE 76; RESP 16; TEMP 36.6; O2SAT 97
--- NOTE | 2019-01-18 12:14 | DCINST_ITS ---
- Discharge Diagnoses Current Active Problems: Current Active and Chronic Problems Opiate withdrawal (Acute) IVDA (intravenous drug abuse) complicating (Chronic) Anxiety and depression (Chronic) Tobacco use (Chronic) Reason(s) for Visit for Discharge Instructions: Acute opiate withdrawal You will use the following diet at home:: Regular Your food should be the consistency of: Regular Your liquids should be the consistency of: Regular/Thin Discharge Activity: Return to Normal Activity Allergies/Adverse Reactions: Allergies latex Allergy (Verified 01/15/19 16:30) Rash Medications to take at Discharge NK 01/15/19 Primary Care Physician: Rashad Castrejon MD [Primary Care Provider] - Please follow up with your Primary Care Physician in: within 1-2 weeks Test Results: Test results from this visit will be discussed in further detail at your follow- up appointment, if applicable. Proposed Discharge Date: 01/18/19
--- NOTE | 2019-01-18 12:16 | DS.PCM_ITS ---
Discharge Date and Diagnosis Date of Admission: 01/15/19 Date of Discharge: 01/18/19 - Primary Discharge Diagnosis Active and Suspected Problems Opiate withdrawal (Acute) - Secondary Discharge Diagnosis Chronic Problems IVDA (intravenous drug abuse) complicating (Chronic) Anxiety and depression (Chronic) Tobacco use (Chronic) Hospital Course and Treatment Imaging Results: Clinical Impression(s) from Imaging Studies Abdomen/Pelvis CT 01/15/19 16:47 IMPRESSION: No demonstrated acute or significant process of the abdomen and pelvis. Electronically Signed: Salvador Darnell MD at 18:48 EST , Service support , None Operations: None Procedures: None Summary of Care Provided: The patient is a 33 year old F with past medical history of anxiety/depression, polysubstance use, IV drug user, uses IV heroin and fentanyl and occasional methamphetamines who presented with acute onset of abdominal pain, cramping, generalized body aches and pains, rhinorrhea, restlessness consistent with acute opiate withdrawal. Patient was admitted to the medical floor and managed on the buprenorphine withdrawal protocol. She continued to improve. Her hepatitis panel was positive for Hepatitis A IgM and antibodies as hepatitis C antibodies. She was advised to follow-up with her primary care doctor for treatment. She was also counseled to stop smoking. She was discharged in a stable state. Subjective: On the discharge, patient was seen and examined. No acute events. No new complains. Objective: Physical exam: General: Alert, Oriented x3, Cooperative, No apparent distress HEENT: Atraumatic, PERRLA, EOMI, Normocephalic Oral: Moist Mucosa Neck: Supple Lungs: Clear to auscultation, Normal air movement Cardiovascular: Regular rate, Regular Rhythm, Normal S1, Normal S2, No murmurs Abdomen: Bowel Sounds Present, Soft, Non Tender, Non-Distended, No Hepato- splenomegaly Extremities: No edema Skin: - - multiple pimples on face Musculoskeletal: No Tenderness to Palpation of Joints or Extremities Lymphatic: No Cervical, Supraclavicular, or Inguinal Adenopathy Neurological: Cranial nerves II-XII grossly intact, Neuro grossly intact Psych/Mental Status: Normal Affect, Appropriate - Physical Exam Vitals/I&O's: Vital Signs Temp Pulse Resp BP Pulse Ox 97.8 F 76 16 91/64 97 01/18/19 11:55 01/18/19 11:55 01/18/19 11:55 01/18/19 11:55 01/18/19 11:55 Oxygen Delivery Method Room Air Weight: 70.398 kg Body Mass Index (BMI) 27.5 Intake and Output for Last 24 Hours 01/16/19 01/17/19 01/18/19 23:59 23:59 23:59 Intake Total 2276.25 / 2276.25 360 / 810 670 / 670 Balance 2276.25 / 2276.25 360 / 810 670 / 670 Current Medications Acetaminophen (Tylenol) 500 mg PO Q4H PRN PRN PRN Reason: Temp > 100.4 F Al Hydroxide/Mg Hydroxide (Mylanta Ii) 30 ml PO Q6H PRN PRN PRN Reason: dyspesia Albuterol Sulfate (Ventolin Aerosols) 2.5 mg INHALATION Q2H PRN PRN PRN Reason: dyspnea, wheezing Bisacodyl (Dulcolax) 10 mg RECTAL DAILY PRN PRN Reason: Constipation Buprenorphine HCl (Buprenorphine Hcl) 2 mg SL Q12H JESSICA; Taper Stop: 01/19/19 00:29 Last Admin: 01/18/19 11:42 Dose: 2 mg Documented by: Chlordiazepoxide (Librium) 25 mg PO Q6H PRN PRN PRN Reason: Moderate-Severe Anxiety Last Admin: 01/18/19 11:48 Dose: 25 mg Documented by: Clonidine (Catapres) 0.1 mg PO Q2H PRN PRN PRN Reason: Hot/Cold Sweats or Anxiety Last Admin: 01/17/19 17:50 Dose: 0.1 mg Documented by: Dextrose (D50w Syringe) 0 gm IV X1 PRN; Protocol PRN Reason: Hypoglycemia Dicyclomine HCl (Bentyl) 20 mg PO Q6H PRN PRN PRN Reason: Abdomnial Discomfort Last Admin: 01/17/19 17:51 Dose: 20 mg Documented by: Glucagon () 1 mg IM .X1 PRN PRN Reason: Hypoglycemia Hydralazine HCl (Apresoline Iv) 10 mg IV Q4H PRN PRN PRN Reason: SBP > 160 Hydroxyzine HCl (Vistaril Vial) 50 mg IM Q6H PRN PRN PRN Reason: Breakthrough Anxiety Hydroxyzine Pamoate (Vistaril Pamoate Capsule) 50 mg PO Q6H PRN PRN PRN Reason: Mild Anxiety Last Admin: 01/15/19 22:44 Dose: 50 mg Documented by: Ibuprofen (Motrin) 600 mg PO Q8H PRN PRN PRN Reason: Pain Score 1-5/10 Last Admin: 01/15/19 23:46 Dose: 600 mg Documented by: Loperamide HCl (Imodium) 2 - 4 mg PO UD PRN PRN Reason: LOOSE STOOLS Methocarbamol (Methocarbamol) 750 mg PO Q6H PRN PRN PRN Reason: Muscle Aches Last Admin: 01/18/19 11:48 Dose: 750 mg Documented by: Nicotine (Nicoderm Cq (Pbkc)) 14 mg TRANSDERM. DAILY JESSICA Last Admin: 01/18/19 11:42 Dose: Not Given Documented by: Ondansetron HCl (Zofran) 4 mg IV Q8H PRN PRN PRN Reason: NAUSEA/VOMITING Ondansetron HCl (Zofran Odt) 4 mg PO Q6H PRN PRN PRN Reason: NAUSEA Last Admin: 01/17/19 11:22 Dose: 4 mg Documented by: Pramipexole Dihydrochloride (Mirapex) 0.25 mg PO Q12H PRN PRN PRN Reason: Restless Legs Last Admin: 01/17/19 03:47 Dose: 0.25 mg Documented by: Quetiapine Fumarate (Seroquel) 25 mg PO Q6H PRN PRN PRN Reason: severe agitation, anxiety Last Admin: 01/17/19 17:51 Dose: 25 mg Documented by: Senna (Senokot) 1 tablet PO QHS PRN PRN Reason: Constipation Sodium Chloride () 10 - 40 ml IV UD PRN PRN Reason: SALINE FLUSH Trazodone HCl (Desyrel) 50 mg PO QHS JESSICA Last Admin: 01/17/19 22:35 Dose: 50 mg Documented by: Discharge Diet: Low fat/ Low Cholesterol, 2000 mg Sodium Diet Discharge Activity: Return to Normal Activity Home Medications: Medications to take at Discharge NK 01/15/19 Primary Care Physician: Rahsad Castrejon MD [Primary Care Provider] - Please follow up with your Primary Care Physician in: within 1-2 weeks Disposition: Home Minutes spent on discharge:: 45 Patient Condition:: Stable Medical Necessity - Tobacco Use Smoking Status: Current every day smoker Tobacco Use: Cigarettes Meaningful Use Info Meaningful Use Diagnoses (Choose all that apply): None applicable Code Visit Inpatient E&M: 22998 Disch Hosp
== END 2019-01-18 14:45 | disposition home or self-care (01) | DRG 773 ==
LOC: ED 17:07 → MS2 19:49 → MS3 01-17 16:09
PROVIDERS: Admitting Provider Family Medicine; Emergency Provider Emergency Medicine; Family Provider Family Medicine; PCP Family Medicine; Referring Provider Family Medicine; Visit Provider Internal Medicine
DX: F11.23 Opioid dependence with withdrawal (principal); F32.9 Major depressive disorder, single episode, unspecified; F41.9 Anxiety disorder, unspecified; F17.210 Nicotine dependence, cigarettes, uncomplicated; F19.90 Other psychoactive substance use, unspecified, uncomplicated
CPT/HCPCS: 74176; 80048; 80307; 80320; 81001; 84703; 85025; 86703; 86704; 86705; 86706; 86708; 86709; 86803; 87340; 99285; J7030; J7120; A4216; G0480

== ENCOUNTER → 2025-01-07 | Outpatient (CLI) | payer MEDICAID, SELFPAY ==
[2025-01-07 12:04] LABS: Hematocrit 38.4 % (37-47); Hemoglobin 13.8 g/dL (12.0-15.0); Immature Granulocytes Count 0.060 X10^3/uL (0.0-0.0); Mean Corp Hgb Conc 35.9 g/dL (32-36); Mean Corpuscular Volume 86.5 fL (81-99); Mean Platelet Vol. 8.9 fl (6.2-12.0); NRBC Flagged by Analyzer 0 % (0-5); Platelet Count 371 K/mm3 (150-450); RBC Distribution Width CV 12.3 % (11.6-14.6); RBC Distribution Width SD 38.9 fl (35.1-43.9); Red Blood Count 4.44 M/mm3 (4.2-5.4); White Blood Count 12.1 K/mm3 (4.4-11.0)
[2025-01-07 13:18] LABS: HIV Nonreactive (Nonreactive); Hepatitis B Surface Antigen Nonreactive (Nonreactive); Hepatitis C Antibody REAC (Nonreactive); Syphilis Antibodies Nonreactive (Nonreactive)
[2025-01-07 17:53] LABS: Barbiturate Urine NEGATIVE (< 200 ng/mL); Benzodiazepine Urine NEGATIVE (< 200 ng/mL); PCP Urine NEGATIVE (< 25 ng/mL); THC Urine NEGATIVE (< 50 ng/mL)
[2025-01-09 21:07] LABS: Chlamydia By Nucleic Acid AMP Negative (Negative); Gonococcus By Nucleic Acid AMP Negative (Negative)
[2025-01-10 15:09] LABS: HPV APTIMA, High Risk Negative (Negative)
[2025-01-12 16:09] LABS: Anti-Cardiolipin Ab, IgG, Qn < 9 GPL U/mL (0-14); Anti-Cardiolipin Ab, IgM, Qn < 9 MPL U/mL (0-12); Antithrombin 3 Function 108 % (75-135); Beta-2-Glycoprotein I IgA <9 (0-25); Beta-2-Glycoprotein I IgG <9 (0-20); Beta-2-Glycoprotein I IgM <9 (0-32); Dilute Russell Viper Venom 36.5 sec (0.0-47.0); Interpretation Comment: (.); PTT-LA 38.7 sec (0.0-43.5)
== END | disposition home or self-care (01) ==
PROVIDERS: PCP Family Medicine; Visit Provider Obstetrics & Gynecology
DX: O09.90 Supervision of high risk pregnancy, unspecified, unspecified trimester (principal); F19.11 Other psychoactive substance abuse, in remission; Z86.718 Personal history of other venous thrombosis and embolism; N96 Recurrent pregnancy loss; Z12.4 Encounter for screening for malignant neoplasm of cervix; O99.891 Other specified diseases and conditions complicating pregnancy; O99.320 Drug use complicating pregnancy, unspecified trimester; Z3A.00 Weeks of gestation of pregnancy not specified
CPT/HCPCS: 36415; 80307; 81241; 85025; 85300; 86146; 86147; 86703; 86762; 86780; 86803; 86850; 86900; 86901; 87077; 87086; 87088; 87186; 87340; 87491; 87591; 87624; 88175; G0145

== ENCOUNTER → 2025-01-14 | Outpatient (CLI) | payer MEDICAID, SELFPAY | END | disposition home or self-care (01) | PROVIDERS: PCP Family Medicine; Visit Provider Obstetrics & Gynecology | DX: Z34.81 Encounter for supervision of other normal pregnancy, first trimester (principal) ==